=== PATIENT | female | born 1995 | race American Indian/Alaskan Native ===

== ENCOUNTER 2016-06-22 08:27 | Emergency (ER) | payer SELFPAY ==
[2016-06-22 08:56] LABS: Basophils % (Auto) 0.7 % (0.0-1.8); Hematocrit 35.9 % (30.3-42.9); Hemoglobin 11.9 gm/dl (10.1-14.3); Mean Corpuscular HGB Conc 33 % (30-34); Mean Corpuscular Hemoglobin 30 pg (28-32); Mean Corpuscular Volume 91 fl (79-97); Platelet Count 293 K/mm3 (140-440); Red Blood Count 3.93 M/mm3 (3.65-5.03); Red Cell Distribution Width 13.2 % (13.2-15.2); White Blood Count 10.3 K/mm3 (4.5-11.0)
--- NOTE | 2016-06-22 09:31 | Emergency Department Report ---
Chief Complaint: Vaginal Bleeding Stated Complaint: POSS MISCARRIAGE Time Seen by Provider: 06/22/16 09:22 - HPI History of Present Illness: Patient here reports that she is confirmed by home test. She reports vaginal bleeding that is heavy and she is passing clots. She says it started Thursday and it stopped and it started again. She says she is wearing a T-shirt because she is bleeding heavily. Denies any urinary symptoms. Denies any fever or chills. She does not have BOTTOM SANDER. - ROS Review of Systems: All systems are negative unless stated in HPI above. - Exam Vital Signs: Vital Signs 06/22/16 08:30 Temperature 97.8 F Pulse Rate 65 Respiratory 18 Rate Blood Pressure 113/64 O2 Sat by Pulse 100 Oximetry Physical Exam: General: This is a 20-year-old female well-nourished well-developed in no acute distress. Abdomen: Tender to palpate the pelvic area. No guarding or rebound tenderness. Bowel sounds in all quadrants. CV: S1, S2. Regular rate and rhythm. MSE screening note: Focused history and physical exam performed. Due to findings the following was ordered:see [facility] ED Medical Decision Making - Lab Data Result diagrams: 06/22/16 08:41 - Medical Decision Making Medical decision making: Patient seen by provider in triage area. Appropriate protocol activated and patient to main ED to be seen by physician. ED Disposition for MSE Condition: Stable
--- NOTE | 2016-06-22 10:37 | Ultrasound Report ---
ULTRASOUND OB LESS THAN 14 WEEKS ULTRASOUND OB TRANSVAGINAL History: Heavy vaginal bleeding, abdominal cramps. Beta hCG level 9652. Findings: Transabdominal and transvaginal ultrasound imaging was obtained. The uterus measures 7 x 4 x 7 cm. No uterine fibroid disease. The endometrial stripe is thickened and complex and contains trace fluid. The endometrium measures 1.7 cm. No normal intrauterine gestational sac or heart tones could be demonstrated. The cervix is obscured. The right ovary measures 3.7 x 2.6 x 2.1 cm. No abnormality. The left ovary measures 3.7 x 1.3 x 3.0 cm and contains a slightly complex area measuring up to 1.6 cm which may represent a corpus luteum cyst. No obvious pole in this area. No pelvic fluid collection. Impression: No normal intrauterine is visualized. The endometrium is thickened and complex measuring 1.7 cm. This may represent a spontaneous with retained products of conception. Please correlate with the patient's clinical presentation. Slightly complex area in the left ovary measuring 1.6 cm which probably represents a corpus luteum cyst. Please note that an ectopic is not highly suspected but is also not excluded at this time.
[2016-06-22] MEDS ORDERED: NACL 0.9% 1000 ML IV ONE (11:30)
[2016-06-22] MEDS ORDERED: ZOFRAN ONE (11:37)
[2016-06-22] MEDS ORDERED: NACL 0.9% 1000 ML 1,000 ML ONE (11:37)
[2016-06-22] MEDS ORDERED: MORPHINE ONE (11:38)
--- NOTE | 2016-06-22 11:38 | Emergency Department Report ---
HPI - General Chief Complaint: Vaginal Bleeding Time Seen by Provider: 06/22/16 09:22 - HPI HPI: Chief complaint: Vaginal bleeding and pelvic cramping HPI: Patient is 20-year-old 2 para 1 1 patient to states she had her last menstrual period 05/03/2016. Patient took a home test that was positive. Patient does take oral contraceptives but does occasionally miss them. Patient began spotting on Thursday and then it went away and recurred on Thursday with significantly worse cramping and heavy blood flow. Patient states she passed lots of clots and was having to change her pad once an hour prior to arrival but this is now slowed down. Patient did not notice any POC. Mode of arrival: private car Source: Patient Began: See above Duration: See above Context: See above Quality: Cramping Severity: 6 out of 10 Improved with: Nothing Worsened with: Nothing Associated signs and symptoms: See above ED Past Medical Hx - Past Medical History Previous Medical History?: No Additional medical history: - Surgical History Past Surgical History?: No - Social History Smoking Status: Current Every Day Smoker Substance Use Type: Alcohol, Marijuana - Medications Home Medications: Home Medications Medication Instructions Recorded Confirmed Last Taken Type Ibuprofen [Motrin 600 MG tab] 600 mg PO Q8H PRN #20 tablet 06/22/16 Unknown Rx Methylergonovine [Methergine] 0.2 mg PO Q8HR #3 tablet 06/22/16 Unknown Rx ED Review of Systems ROS: Stated complaint: POSS MISCARRIAGE Other details as noted in HPI ROS Constitutional: No fever ENT: No uri symptoms Cardiovascular: No chest pain Respiratory: No sob or cough GI: No nausea vomiting or diarrhea : No dysuria frequency or urgency, Skin: No rash Neuro: No focal weakness or numbness Psych: No depression Lloyd/lymph: No edema Physical Exam - Physical Exam Vital Signs: Vital Signs 06/22/16 06/22/16 08:30 10:55 Temperature 97.8 F 98.1 F Pulse Rate 65 61 Respiratory 18 16 Rate Blood Pressure 113/64 Blood Pressure 100/56 [Left] O2 Sat by Pulse 100 99 Oximetry Physical Exam: GENERAL: The patient is well-developed well-nourished . HEENT: Normocephalic. Atraumatic. Extraocular motions are intact. Patient has moist mucous membranes. NECK: Supple. No meningitic signs are noted. There is no adenopathy noted. CHEST/LUNGS: Clear to auscultation. There is no respiratory distress noted. HEART/CARDIOVASCULAR: Regular. There is no tachycardia. There is no gallop rub or murmur. ABDOMEN: Abdomen is soft, nontender. Patient has normal bowel sounds. There is no abdominal distention. : Os closed no clots moderate dark blood. Mild tenderness to palpation. SKIN: There is no rash. There is no edema. There is no diaphoresis. NEURO: The patient is awake, alert, and oriented. The patient is cooperative. The patient has no focal neurologic deficits. The patient has normal speech. MUSCULOSKELETAL: There is no tenderness or deformity. There is no limitation range of motion. There is no evidence of acute injury. ED Course Vital Signs 06/22/16 06/22/16 08:30 10:55 Temperature 97.8 F 98.1 F Pulse Rate 65 61 Respiratory 18 16 Rate Blood Pressure 113/64 Blood Pressure 100/56 [Left] O2 Sat by Pulse 100 99 Oximetry - Reevaluation(s) Reevaluation #1: 06/22/16 12:[address] Matias who recommends patient be sent home with Methergine 2 mg by mouth every 8 hours 3 and follow-up in their office tomorrow. ED Medical Decision Making - Lab Data Result diagrams: 06/22/16 08:41 Laboratory Tests 06/22/16 06/22/16 08:41 08:41 HCG, Quant 9652 H Blood Type B POSITIVE Antibody Screen Negative - Radiology Data Radiology results: report reviewed (no IUP. Endometrium is thickened and complex measuring 1.7 cm. This may represent a spontaneous with retained products of conception. Slightly complex area of the left ovary measuring 1.6 cm which probably represents a corpus luteal cyst. Ectopic is not highly suspected but not excluded.) Critical care attestation.: If time is entered above; I have spent that time in minutes in the direct care of this critically ill patient, excluding procedure time. ED Disposition Clinical Impression: Spontaneous miscarriage Disposition: DISCHARGED TO HOME OR SELFCARE Is pt being admited?: No Does the pt Need Aspirin: No Condition: Stable Instructions: Spontaneous Miscarriage (ED) Prescriptions: Ibuprofen [Motrin 600 MG tab] 600 mg PO Q8H PRN #20 tablet PRN Reason: Pain Methylergonovine [Methergine] 0.2 mg PO Q8HR #3 tablet Referrals: [facility] [Provider Group] - 24 Hours (Call in the morning to set up an appointment to be seen tomorrow for reevaluation. Advised then you were seen in the emergency department and we spoke with Dr. Matias.) Time of Disposition: 12:28
--- NOTE | 2016-06-22 11:40 | Event Note ---
Date: 06/22/16 [employer] Technician consulted regarding this pt and exam findings. Pt with likely resolving SAB based upon history given and exam presented. Vitals and h/h are stable. Quant is elevated by there is no comparison so likely is a falling value. She can be d/c home on methergine po q 8 hours time three doses and f/u with either this nurse gynecology provider or her own nurse gynecology provider this week for repeat quant as well as sonogram if needed. Office number is [phone]. PT to return to the ER should symptoms worsen or don't improve prior to her appointment in the office.
[2016-06-22] MEDS ORDERED: ZOFRAN IV ONE (12:10)
[2016-06-22] MEDS ORDERED: MORPHINE IV ONE (12:10)
[2016-06-22] MEDS ORDERED: TORADOL ONE (12:10)
[2016-06-22] MEDS ORDERED: TORADOL IV ONE (12:11)
[2016-06-22 12:46] VITALS: BP 107/54
== END 2016-06-22 12:45 | disposition home or self-care (01) ==
LOC: ED 08:27
DX: O03.9 Complete or unspecified spontaneous abortion without complication (principal); F12.10 Cannabis abuse, uncomplicated; F17.200 Nicotine dependence, unspecified, uncomplicated
CPT/HCPCS: 36415; 76801; 76817; 84702; 85025; 86850; 86900; 86901; 96374; 96375; 99284; J1885; J2270; J2405; J7030